=== PATIENT | female | born 1940 | race Two or more races ===

== ENCOUNTER 2024-05-04 05:31 | Emergency (ER) | payer OTHER ==
[~2024-05-04] VITALS: Ht 160 cm; Wt 53.5 kg
[2024-05-04 08:36] LABS: HEMATOCRIT 40.6 % (36.0-45.00); HEMOGLOBIN 13.7 g/dL (12.0-15.00); MEAN CELL VOLUME 98.6 fL (80.00-100.00); MEAN CORPUSCULAR HEMOGLOBIN 33.3 pg (27.00-32.0); MEAN CORPUSCULAR HGB CONC 33.8 g/dl (32.0-36.0); PLATELET COUNT 245 K/uL (150-450); RED BLOOD COUNT 4.12 M/uL (4.00-6.00); RED CELL DISTRIBUTION WIDTH 13.6 % (11.5-14.5)
[2024-05-04 09:06] LABS: ALBUMIN 3.6 gm/dL (3.4-5.0); BILIRUBIN TOTAL 1.49 mg/dL (0.3-1.2); CALCIUM 10.8 mg/dL (8.5-10.1); CREATININE SERUM 0.98 mg/dL (0.55-1.02); GFR 54.2; GLOBULINA 4.1 G/DL (2.4-3.5); POTASSIUM 4.16 mEq/L (3.5-5.1); TOTAL PROTEIN 7.7 gm/dL (6.4-8.2)
[2024-05-04 09:10] LABS: INR 1.02; PARTIAL THROMBOPLASTIN TIME 28.6 SECONDS (22.0-34.0); PROTHROMBIN TIME 11.1 SECONDS (9.0-11.5)
[2024-05-04 09:23] LABS: URINE APPEARANCE Turbid; URINE BILIRRUBIN Negative (NEGATIVE); URINE BLOOD Negative; URINE COLOR Dark Yellow; URINE GLUCOSE Negative (NEGATIVE); URINE KETONE Negative (NEGATIVE); URINE LEUKOCYTE Trace; URINE NITRATE Negative; URINE PROTEIN Negative (NEGATIVE); URINE UROBILINOGEN 0.2 E.U./dl
[2024-05-04 09:27] LABS: URINE BACTERIA 367.1 uL (0.0-1933); URINE EPITHELIAL CELLS 29.7 uL (0.0-38.8); URINE RBC 25.4 uL (0.0-20.8); URINE WBC 37.8 uL (0.0-23.2)
[2024-05-04 09:38] LABS: URINE CAST 0.44 uL (0.0-1.40)
== END 2024-05-04 10:40 | disposition home or self-care (01) ==
LOC: ER 05:34
PROVIDERS: General Practice
DX: R51.9 Headache, unspecified (principal); R00.2 Palpitations; I10 Essential (primary) hypertension